=== PATIENT | male | born 1940 | race Caucasian/White ===

== ENCOUNTER 2020-07-26 06:07 | Day surgery (SDC) | payer MEDICARE ==
[2020-07-25 14:12] LABS: BASOPHILS % (AUTO) 0.3 % (0-1); EOSINOPHILS # (AUTO) 0.2 X10'3 (0-0.9); EOSINOPHILS % (AUTO) 2.5 % (0-6); HEMATOCRIT 41.2 % (42.0-52.0); HEMOGLOBIN 13.8 g/dl (14.0-17.9); LYMPHOCYTES % (AUTO) 13.1 % (21-51); MEAN CORPUSCULAR HEMOGLOBIN 31.6 PG (27.0-31.0); MEAN CORPUSCULAR HGB CONC 33.6 g/dL (33.0-36.5); MEAN CORPUSCULAR VOLUME 94.2 FL (78-98); MEAN PLATELET VOLUME 7.8 FL (7.4-10.4); MONOCYTES # (AUTO) 0.8 X10'3 (0-0.9); MONOCYTES % (AUTO) 10.6 % (2-12); NEUTROPHILS # (AUTO) 5.4 X10'3 (1.8-7.7); NEUTROPHILS % (AUTO) 73.5 % (42-75); PLATELET COUNT 204 X10'3 (140-440); RED BLOOD COUNT 4.38 X10'6 (4.70-6.10); RED CELL DISTRIBUTION WIDTH 14.3 % (11.5-14.5); WHITE BLOOD COUNT 7.4 X10'3 (4.5-11.0)
[2020-07-25 14:23] LABS: ALBUMIN 3.8 G/DL (3.4-5.0); ANION GAP 8 (8-16); BLOOD UREA NITROGEN 13 MG/DL (7-18); CALCIUM 9.5 MG/DL (8.5-10.1); CHLORIDE 101 MMOL/L (99-107); CREATININE 1.18 MG/DL (0.60-1.10); GLUCOSE 88 MG/DL (70-104); POTASSIUM 3.9 MMOL/L (3.5-5.1); SODIUM 138 MMOL/L (135-145); TOTAL CARBON DIOXIDE 29.1 MMOL/L (24-32); eGFR 60 ML/MIN
[2020-07-25 14:38] LABS: PARTIAL THROMBOPLASTIN TIME 27 SECONDS (22-32)
[~2020-07-26] VITALS: Ht 172.7 cm; Wt 59.3 kg
[2020-07-26] VITALS (18 sets, daily range): BP systolic 106–187; BP diastolic 61–87
[~2020-07-26 06:07] MED LIST: ASPI-1265 PO; ATOR40TA PO; CLOP75TA35 PO; SERT100T PO; VIT-9 PO
[2020-07-26] MEDS ORDERED: diphenhydrAMINE 25mg capsule PO PRN (06:25)
[2020-07-26] MEDS ORDERED: normal saline 1,000 ML IV SCH (06:25)
[2020-07-26] MEDS ORDERED: LIDOcaine/PRILOcaine 5gm cream TP ONE (06:25)
[2020-07-26] MEDS ORDERED: LORazepam 0.5 MG tablet PO PRN (06:25)
[2020-07-26] MEDS ORDERED: ASPI325T88 PO (06:30)
[2020-07-26] MEDS ORDERED: ALENDRONATE PO (06:33)
[2020-07-26] MEDS ORDERED: ALENDRONATE (06:34)
[2020-07-26] MEDS ORDERED: CHOL400T57 PO (06:35)
[2020-07-26] MEDS ORDERED: CALC-212 PO (06:35)
[2020-07-26] MEDS ORDERED: midazolam 2 mg/2 ml injection ONE (07:25)
[2020-07-26] MEDS ORDERED: verapamil 2.5 mg/ml inj IV ONE (07:25)
[2020-07-26] MEDS ORDERED: fentaNYL/PF 50MCG/1 ML 2ML syringe ONE (07:25)
[2020-07-26] MEDS ORDERED: nitroGLYCERIN-Tridil 50MG/D5W 250 ML IV ONE (07:25)
[2020-07-26] MEDS ORDERED: heparin 1,000 UNITS/NS 500ml 500 ML ONE (07:26)
[2020-07-26] MEDS ORDERED: iohexol 350MG/ML 100ml bottle IV ONE (07:26)
[2020-07-26] MEDS ORDERED: iohexol 350 MG/ML 50ML vial IV ONE (07:26)
[2020-07-26] MEDS ORDERED: LIDOcaine 1% (10mg/ml)w/preservative injection 20ml MDV ONE ×2 (07:26→12:03)
[2020-07-26] MEDS ORDERED: heparin 1,000unit/ml 10ml vial 10 ML ONE (07:26)
[2020-07-26] MEDS ORDERED: heparin 25,000 UNIT/250ml bag 250 ML IV ONE (08:52)
[2020-07-26] MEDS ORDERED: iohexol 350 MG/1 ML 200ml bottle ONE (08:56)
[2020-07-26] MEDS ORDERED: hydrALAZINE 20mg/ml inj. IV ONE (09:03)
[2020-07-26] MEDS ORDERED: clopidogrel 300mg tablet ONE (09:49)
[2020-07-26] MEDS ORDERED: proCHLORperazine 10 MG/2 ml inj IV PRN (10:30)
[2020-07-26] MEDS ORDERED: HYDROcodone/acetaminophen 10/325mg tab PO PRN ×2 (10:30)
[2020-07-26] MEDS ORDERED: acetaminophen 325mg tablet PO PRN (10:30)
[2020-07-26] MEDS ORDERED: magnesium hydroxide 30ml (MOM) UD suspension PO PRN (10:30)
[2020-07-26] MEDS ORDERED: OXAZEpam 15mg capsule PO PRN (10:30)
[2020-07-26] MEDS ORDERED: aspirin 81mg tab.chew PO ONE (10:30)
[2020-07-26] MEDS ORDERED: cyclobenzaprine 10mg tablet PO PRN (10:30)
--- NOTE | 2020-07-26 14:59 | NUR ---
Report given to Jessica HOLT, right groin site stable. No hematoma, VSS.
--- NOTE | 2020-07-26 19:00 | NUR ---
f/c removed without s/s of complications.
[2020-07-26] MEDS ORDERED: docusate sod 100mg capsule PO SCH (20:00)
[2020-07-27] MEDS ORDERED: clopidogrel 75mg tablet PO SCH (08:00)
[2020-07-27] MEDS ORDERED: aspirin 325mg tablet PO SCH (08:00)
== END 2020-07-26 19:55 | disposition home or self-care (01) ==
LOC: SSTAY O 06:07
PROVIDERS: ATTEND Internal Medicine Cardiovascular Disease
DX: I35.0 Nonrheumatic aortic (valve) stenosis (principal); I25.10 Atherosclerotic heart disease of native coronary artery without angina pectoris; E78.5 Hyperlipidemia, unspecified; I11.0 Hypertensive heart disease with heart failure; I50.9 Heart failure, unspecified; G47.33 Obstructive sleep apnea (adult) (pediatric); J44.9 Chronic obstructive pulmonary disease, unspecified; Z95.5 Presence of coronary angioplasty implant and graft; Z79.899 Other long term (current) drug therapy; Z79.01 Long term (current) use of anticoagulants; Z79.82 Long term (current) use of aspirin; Z86.73 Personal history of transient ischemic attack (TIA), and cerebral infarction without residual deficits; Z90.49 Acquired absence of other specified parts of digestive tract; Z98.890 Other specified postprocedural states; Z85.51 Personal history of malignant neoplasm of bladder; Z87.891 Personal history of nicotine dependence
CPT/HCPCS: 36415; 76937; 80048; 85025; 85347; 85610; 85730; 93005; 93460; 99152; 99153; C1725; C1751; C1760; C1769; C1874; C1894; C9600; J0360; J0780; J1644; J2001; J2250; J3010; J7030; J7040; Q0163; Q9967; 93458; A4620; A5120; A6258; A6449; C9601; J3490

== ENCOUNTER 2020-08-11 08:20 | Outpatient (CLI) | payer MEDICARE ==
[~2020-08-11 08:20] MED LIST changes: -ASPI-1265 PO; +ASPI325T88 PO; +CALC-212 PO; +CHOL400T57 PO; +CLOP75TA34 PO; -CLOP75TA35 PO
== END 2020-08-11 23:59 | disposition home or self-care (01) ==
LOC: CARD DIAG 08:20
PROVIDERS: ATTEND Internal Medicine Cardiovascular Disease
DX: K57.10 Diverticulosis of small intestine without perforation or abscess without bleeding (principal); K44.9 Diaphragmatic hernia without obstruction or gangrene; K57.30 Diverticulosis of large intestine without perforation or abscess without bleeding; M47.816 Spondylosis without myelopathy or radiculopathy, lumbar region; M43.17 Spondylolisthesis, lumbosacral region; I70.0 Atherosclerosis of aorta; K42.9 Umbilical hernia without obstruction or gangrene; M48.061 Spinal stenosis, lumbar region without neurogenic claudication; I70.8 Atherosclerosis of other arteries; I25.10 Atherosclerotic heart disease of native coronary artery without angina pectoris; J98.11 Atelectasis; I65.23 Occlusion and stenosis of bilateral carotid arteries; I08.0 Rheumatic disorders of both mitral and aortic valves
CPT/HCPCS: 71046; 71275; 74174; 93308; 93880; Q9967

== ENCOUNTER 2020-10-27 14:31 | Outpatient (CLI) | payer MEDICARE ==
[~2020-10-27] VITALS: Ht 170.2 cm; Wt 61.3 kg
[2020-10-27 17:37] VITALS: BP 167/79
--- NOTE | 2020-10-27 17:39 | NUR ---
Patient and his were seen today for TAVR follow-up with Dr. Morales and Dr. Srivastava. [facility] Walk test completed. Vital signs measured. Echo and EKG reviewed with patient along with current condition of patients symptoms.
== END 2020-10-27 23:59 | disposition home or self-care (01) ==
LOC: TAVR 14:31
PROVIDERS: ATTEND Internal Medicine Cardiovascular Disease
DX: Z48.812 Encounter for surgical aftercare following surgery on the circulatory system (principal); Z95.5 Presence of coronary angioplasty implant and graft

== ENCOUNTER 2021-08-19 11:26 | Emergency (ER) | payer MEDICARE ==
[~2021-08-19] VITALS: Ht 170.2 cm; Wt 61.0 kg
[2021-08-19] MEDS ORDERED: aspirin 81mg tab.chew PO ONE (11:30)
[2021-08-19 12:06] LABS: BASOPHILS % (AUTO) 0.3 % (0-1); EOSINOPHILS # (AUTO) 0.1 X10'3 (0-0.9); EOSINOPHILS % (AUTO) 1.5 % (0-6); HEMATOCRIT 35.7 % (42.0-52.0); HEMOGLOBIN 12.3 g/dl (14.0-17.9); LYMPHOCYTES # (AUTO) 0.8 X10'3 (1.1-4.8); LYMPHOCYTES % (AUTO) 16.3 % (21-51); MEAN CORPUSCULAR HEMOGLOBIN 32.3 PG (27.0-31.0); MEAN CORPUSCULAR HGB CONC 34.4 g/dL (33.0-36.5); MEAN CORPUSCULAR VOLUME 93.9 FL (78-98); MEAN PLATELET VOLUME 7.3 FL (7.4-10.4); MONOCYTES # (AUTO) 0.7 X10'3 (0-0.9); MONOCYTES % (AUTO) 13.9 % (2-12); NEUTROPHILS # (AUTO) 3.4 X10'3 (1.8-7.7); PLATELET COUNT 224 X10'3 (140-440); RED CELL DISTRIBUTION WIDTH 14.6 % (11.5-14.5)
[2021-08-19 12:19] LABS: D-DIMER 1.03 MG/L FEU (0-0.50); PARTIAL THROMBOPLASTIN TIME 28 SECONDS (22-32)
[2021-08-19 12:22] LABS: ALANINE AMINOTRANSFERASE 21 U/L (12-78); ALBUMIN 3.4 G/DL (3.4-5.0); ALKALINE PHOSPHATASE 75 IU/L (46-116); ANION GAP 11 (8-16); ASPARTATE AMINO TRANSFERASE 27 U/L (10-37); BILIRUBIN,TOTAL 0.5 MG/DL (0.1-1.0); BLOOD UREA NITROGEN 10 MG/DL (7-18); BUN/CREATININE RATIO 7.6 (5.4-32.0); CALCIUM 9.1 MG/DL (8.5-10.1); CHLORIDE 97 MMOL/L (99-107); CREATININE 1.32 MG/DL (0.60-1.10); GLUCOSE 76 MG/DL (70-104); SODIUM 133 MMOL/L (135-145); TOTAL CARBON DIOXIDE 25.1 MMOL/L (24-32); TOTAL PROTEIN 6.8 G/DL (6.4-8.2); eGFR 52 ML/MIN
[2021-08-19 12:33] LABS: MAGNESIUM 1.9 MG/DL (1.5-2.4)
--- NOTE | 2021-08-19 13:30 | NUR ---
Dr. Garcia made aware that aspirin 81 mg was taken today per patient, MD said still give 324mg asa.
[2021-08-19] MEDS ORDERED: LOP25T PO (16:08)
[2021-08-19 16:20] VITALS: BP 181/96
== END 2021-08-19 16:21 | disposition home or self-care (01) ==
LOC: ER 11:26
DX: R00.2 Palpitations (principal); I11.9 Hypertensive heart disease without heart failure; E78.00 Pure hypercholesterolemia, unspecified; Z79.899 Other long term (current) drug therapy
CPT/HCPCS: 36415; 71045; 80053; 83735; 83880; 84443; 84484; 85025; 85379; 85610; 85730; 93005; 99285

== ENCOUNTER 2021-09-14 12:24 | Outpatient (CLI) | payer MEDICARE ==
[~2021-09-14] VITALS: Ht 171.4 cm; Wt 63.4 kg
[~2021-09-14 12:24] MED LIST changes: +LOP25T PO
--- NOTE | 2021-09-14 14:14 | NUR ---
Patient seen in clinic today with Dr. Srivastava for 1-year f/up. Echo and EKG done in clinic. walk test and [facility]12 completed. Patient and doctor able to discuss symptoms and ask questions.
[2021-09-14 14:16] VITALS: BP 177/69
== END 2021-09-14 23:59 | disposition home or self-care (01) ==
LOC: TAVR 12:24
PROVIDERS: ATTEND Internal Medicine Cardiovascular Disease
DX: I34.0 Nonrheumatic mitral (valve) insufficiency (principal); Z95.2 Presence of prosthetic heart valve; Z48.812 Encounter for surgical aftercare following surgery on the circulatory system
CPT/HCPCS: 93005; 93306

== ENCOUNTER 2022-03-27 06:08 | Day surgery (SDC) | payer MEDICARE ==
[2022-03-26 09:54] LABS: BASOPHILS % (AUTO) 0.4 % (0-1); EOSINOPHILS # (AUTO) 0.1 X10'3 (0-0.9); EOSINOPHILS % (AUTO) 1.4 % (0-6); HEMATOCRIT 37.8 % (42.0-52.0); HEMOGLOBIN 12.7 g/dl (14.0-17.9); LYMPHOCYTES % (AUTO) 15.7 % (21-51); MEAN CORPUSCULAR HGB CONC 33.5 g/dL (33.0-36.5); MEAN CORPUSCULAR VOLUME 92.5 FL (78-98); MEAN PLATELET VOLUME 7.6 FL (7.4-10.4); MONOCYTES # (AUTO) 0.8 X10'3 (0-0.9); MONOCYTES % (AUTO) 12.8 % (2-12); NEUTROPHILS # (AUTO) 4.3 X10'3 (1.8-7.7); NEUTROPHILS % (AUTO) 69.7 % (42-75); PLATELET COUNT 225 X10'3 (140-440); RED BLOOD COUNT 4.09 X10'6 (4.70-6.10); RED CELL DISTRIBUTION WIDTH 14.4 % (11.5-14.5); WHITE BLOOD COUNT 6.2 X10'3 (4.5-11.0)
[2022-03-26 10:00] LABS: ALBUMIN 3.6 G/DL (3.4-5.0); ANION GAP 9 (8-16); APTT 29 SECONDS (22-32); BLOOD UREA NITROGEN 9 MG/DL (7-18); BUN/CREATININE RATIO 8.1 (5.4-32.0); CALCIUM 8.8 MG/DL (8.5-10.1); CHLORIDE 98 MMOL/L (99-107); CREATININE 1.11 MG/DL (0.60-1.10); GLUCOSE 92 MG/DL (70-104); SODIUM 133 MMOL/L (135-145); TOTAL CARBON DIOXIDE 26.5 MMOL/L (24-32); eGFR 64 ML/MIN
[~2022-03-27] VITALS: Ht 170.2 cm; Wt 61.9 kg
[2022-03-27] VITALS (17 sets, daily range): BP systolic 122–186; BP diastolic 63–80
[2022-03-27] MEDS ORDERED: BETA1TAB20 PO (06:28)
[2022-03-27] MEDS ORDERED: ASPI81TA52 PO (06:29)
[2022-03-27] MEDS ORDERED: ALEN70TA80 PO (06:29)
[2022-03-27] MEDS ORDERED: NAPR-56 PO (06:32)
[2022-03-27] MEDS ORDERED: TIOT18CA3 PO (06:32)
[2022-03-27] MEDS ORDERED: LORazepam 0.5 MG tablet PO PRN (06:45)
[2022-03-27] MEDS ORDERED: diphenhydrAMINE 25mg capsule PO PRN (06:45)
[2022-03-27] MEDS ORDERED: normal saline 1,000 ML IV SCH (06:45)
[2022-03-27] MEDS ORDERED: LIDOcaine/PRILOcaine 5gm cream TP ONE (06:50)
[2022-03-27] MEDS ORDERED: verapamil 2.5 mg/ml inj IV ONE (07:18)
[2022-03-27] MEDS ORDERED: midazolam 1 mg/ML 2ml injection ONE ×2 (07:18→08:47)
[2022-03-27] MEDS ORDERED: nitroGLYCERIN-Tridil 50MG/D5W 250 ML IV ONE (07:18)
[2022-03-27] MEDS ORDERED: heparin 1,000unit/ml 10ml vial 20 ML ONE (07:19)
[2022-03-27] MEDS ORDERED: LIDOcaine 1% (10mg/ml) 2ml vial ONE (07:19)
[2022-03-27] MEDS ORDERED: fentaNYL/PF 50MCG/1 ML 2ML syringe ONE (07:19)
[2022-03-27] MEDS ORDERED: iohexol 350MG/ML 100ml bottle IV ONE ×3 (07:19→09:13)
[2022-03-27] MEDS ORDERED: LIDOcaine 1% 30ml preserv. free vial ONE (08:48)
[2022-03-27] MEDS ORDERED: heparin 25,000 UNIT/250ml bag 250 ML IV ONE (09:05)
[2022-03-27] MEDS ORDERED: clopidogrel 300mg tablet ONE (09:24)
[2022-03-27] MEDS ORDERED: HYDROcodone/acetaminophen 10/325mg tab PO PRN (10:15)
[2022-03-27] MEDS ORDERED: HYDROcodone/acetaminophen 5mg/325mg tablet PO PRN (10:15)
[2022-03-27] MEDS ORDERED: morphine 2 MG/ML inj. syringe IV PRN (10:15)
[2022-03-27] MEDS ORDERED: normal saline 1000ml 1,000 ML IV SCH (10:15)
[2022-03-27] MEDS ORDERED: hydrALAZINE 20mg/ml inj. IV PRN (10:35)
[2022-03-27] MEDS ORDERED: nitroGLYCERIN 0.4mg SUBLingual tab SL PRN (10:35)
--- NOTE | 2022-03-27 15:57 | NUR ---
Pt and both state they have Plavix at home already. New RX faxed to [facility].
[2022-03-28] MEDS ORDERED: clopidogrel 75mg tablet PO SCH (08:00)
== END 2022-03-27 17:00 | disposition home or self-care (01) ==
LOC: SSTAY O 06:08
PROVIDERS: ATTEND Internal Medicine Cardiovascular Disease
DX: R94.39 Abnormal result of other cardiovascular function study (principal); I25.10 Atherosclerotic heart disease of native coronary artery without angina pectoris; I10 Essential (primary) hypertension; E78.5 Hyperlipidemia, unspecified; G47.33 Obstructive sleep apnea (adult) (pediatric); G47.30 Sleep apnea, unspecified; J44.9 Chronic obstructive pulmonary disease, unspecified; I35.0 Nonrheumatic aortic (valve) stenosis; I73.9 Peripheral vascular disease, unspecified; K21.9 Gastro-esophageal reflux disease without esophagitis; D32.9 Benign neoplasm of meninges, unspecified; G62.9 Polyneuropathy, unspecified; Z79.899 Other long term (current) drug therapy; Z98.890 Other specified postprocedural states; Z95.5 Presence of coronary angioplasty implant and graft; Z79.01 Long term (current) use of anticoagulants; Z90.49 Acquired absence of other specified parts of digestive tract; Z95.2 Presence of prosthetic heart valve; Z95.4 Presence of other heart-valve replacement
CPT/HCPCS: 36415; 76937; 80048; 85025; 85347; 85610; 85730; 92920; 93005; 93458; A6258; C1725; C1751; C1760; C1769; C1894; J0360; J1644; J2250; J3010; J3490; J7030; Q0163; Q9967; 99152; 99153; A4615; A4620; A5120; A6402; A6449

== ENCOUNTER 2022-05-30 08:42 | Outpatient (CLI) | payer MEDICARE ==
[~2022-05-30] VITALS: Ht 170.2 cm; Wt 61.7 kg
[~2022-05-30 08:42] MED LIST changes: +ALEN70TA80 PO; -ASPI325T88 PO; +ASPI81TA52 PO; +BETA1TAB20 PO; -LOP25T PO; +NAPR-56 PO; +TIOT18CA3 PO; -VIT-9 PO
[2022-05-30 09:08] LABS: ABG BASE EXCESS 0.7 mmol/L (-2.0-2.0); ABG HCO3 23.8 mmol/L (22.0-26.0); ABG OXYGEN SATURATION 94.8 % (94-97); ABG PCO2 (T) 33.6 mmHg (35.0-48.0); ABG PO2 (T) 76.3 mmHg (75.0-100.0); ALLEN'S TEST POSITIVE; FCOHb 0.5 % (0.0-3.9); FO2Hb 94.3 % (94-97); TOTAL HEMOGLOBIN 13.4 G/dl (14.0-18.0)
[2022-05-30] MEDS ORDERED: albuterol 2.5 MG/3 ML nebule NEB PRN (09:40)
== END 2022-05-30 23:59 | disposition home or self-care (01) ==
LOC: RT 08:42
PROVIDERS: ATTEND Family Medicine
DX: J44.9 Chronic obstructive pulmonary disease, unspecified (principal); Z79.899 Other long term (current) drug therapy
CPT/HCPCS: 36600; 82803; 85018; 94060; 94727; 94729; 94760

== ENCOUNTER 2022-12-04 10:52 | Outpatient (CLI) | payer MEDICARE | END 2022-12-04 23:59 | disposition home or self-care (01) | LOC: CARD DIAG 10:52 | PROVIDERS: ATTEND Internal Medicine Cardiovascular Disease | DX: I08.8 Other rheumatic multiple valve diseases (principal) | CPT/HCPCS: 93306 ==